=== PATIENT | female | born 1985 | race Caucasian/White ===

== ENCOUNTER 2017-08-27 19:25 | Emergency (ER) | payer MEDICARE, MEDICAID ==
[2017-08-27 19:51] LABS: BASO % 0.2 % (0-6); EOS % 0.7 % (0-6); HEMATOCRIT 45.9 % (35.0-47.0); HEMOGLOBIN 15.5 gm/dl (11.6-16.0); LYMPH % 15.5 % (16-45); MEAN CELL VOLUME 84.5 fl (81-97); MEAN CORPUSCULAR HEMOGLOBIN 28.5 pg (27-33); MEAN CORPUSCULAR HGB CONC 33.8 g/dl (32-36); MEAN PLATELET VOLUME 9.7 fl (7.4-10.4); MONO % 8.6 % (0-9); PLATELET COUNT 284 K/uL (130-400); RED BLOOD COUNT 5.43 M/uL (3.80-5.40); RED CELL DISTRIBUTION WIDTH 12.7 % (11.5-14.5); WHITE BLOOD COUNT W/O DIFF 8.8 K/uL (4.2-12.2)
[2017-08-27 20:03] LABS: BLOOD UREA NITROGEN 6 mg/dL (6-20); CREATININE 0.4 mg/dL (0.5-0.9); EST GLOMERULAR FILTRATION RATE > 60 mL/min
[2017-08-27 20:04] LABS: TOTAL PROTEIN 7.9 g/dL (6.6-8.7)
[2017-08-27 20:06] LABS: GLUCOSE,RANDOM 129 mg/dL (74-109)
[2017-08-27 20:09] LABS: ALB/GLOB RATIO 1.5 (1.1-1.8); ALBUMIN 4.7 g/dL (4.0-5.0); ALKALINE PHOSPHATASE 89 U/L (35-104); ALT/SGPT 123 U/L (<33); AST/SGOT 156 U/L (10.0-35.0)
[2017-08-27 20:12] LABS: URINE APPEARANCE CLEAR; URINE BILIRUBIN MODERATE (NEGATIVE); URINE BLOOD NEGATIVE (NEGATIVE); URINE COLOR ORANGE; URINE GLUCOSE (UA) NEGATIVE (NEGATIVE); URINE KETONE TRACE (NEGATIVE); URINE LEUKOCYTE ESTERASE NEGATIVE (NEGATIVE); URINE NITRITE NEGATIVE (NEGATIVE); URINE PROTEIN TRACE (NEGATIVE)
[2017-08-27 20:13] LABS: HCG,QUALITATIVE URINE NEGATIVE (NEGATIVE)
--- NOTE | 2017-08-27 21:05 | Emergency Department Record ---
History of Present Illness - General Chief Complaint: Abdominal Pain Stated Complaint: ABDOMINAL PAIN Time Seen by Provider: 08/27/17 19:42 Source: Patient Mode of Arrival: Ambulatory Limitations: No limitations - History of Present Illness Initial Comments: pt has ap since her son jumped on her abdomen yesterday. she has vomited 7 times and has upper abd pain MD Complaint: Abdominal pain Onset/Timin -: Days(s) Location: LUQ, RUQ Radiation: None Severity: Moderate Severity scale (1-10): 5 Quality: Aching Consistency: Constant Improves With: Nothing Worsens With: Nothing Associated Symptoms: Nausea, Vomiting - Related Data LMP (females 10-50): 1 month ago Patient : No Home Medications Medication Instructions Recorded Confirmed Last Taken No Home Med [NO HOME MEDS] 08/27/17 08/27/17 Unknown Allergies Allergy/AdvReac Type Severity Reaction Status Date / Time Penicillins Allergy Severe HIVES Unverified 12/27/15 15:49 Travel Screening - Travel/Exposure Within Last 30 Days Have you traveled within the last 30 days?: No Review of Systems Reviewed: No additional complaints except as noted below Constitutional: Reports: As per HPI. Denies: Chills, Fever, Malaise, Night sweats, Weakness, Weight change Eyes: Reports: As per HPI. Denies: Eye discharge, Eye pain, Photophobia, Vision change ENT: Reports: As per HPI. Denies: Congestion, Dental pain, Ear pain, Epistaxis , Hearing loss, Throat pain Respiratory: Reports: As per HPI. Denies: Cough, Dyspnea, Hemoptysis, Stridor, Wheezes Cardiovascular: Reports: As per HPI. Denies: Arrhythmia, Chest pain, Dyspnea on exertion, Edema, Murmurs, Orthopnea, Palpitations, Paroxysmal nocturnal dyspnea, Rheumatic Fever, Syncope Endocrine: Reports: As per HPI. Denies: Fatigue, Heat or cold intolerance, Polydipsia, Polyuria Gastrointestinal: Reports: As per HPI, Abdominal pain, Nausea, Vomiting. Denies : Constipation, Diarrhea, Hematemesis, Hematochezia, Melena Genitourinary: Reports: As per HPI. Denies: Abnormal menses, Discharge, Dyspareunia, Dysuria, Frequency, Hematuria, Incontinence, Retention, Urgency Musculoskeletal: Reports: As per HPI. Denies: Arthralgia, Back pain, Gout, Joint swelling, Myalgia, Neck pain Skin: Reports: As per HPI. Denies: Bruising, Change in color, Change in hair/ nails, Lesions, Pruritus, Rash Neurological: Reports: As per HPI. Denies: Abnormal gait, Confusion, Headache, Numbness, Paresthesias, Seizure, Tingling, Tremors, Vertigo, Weakness Psychiatric: Reports: As per HPI. Denies: Anxiety, Auditory hallucinations, Depression, Homicidal thoughts, Suicidal thoughts, Visual hallucinations Hematological/Lymphatic: Reports: As per HPI. Denies: Anemia, Blood Clots, Easy bleeding, Easy bruising, Swollen glands Past Medical History - SOCIAL HISTORY Smoking Status: Never smoker Alcohol Use: None Drug Use: None - RESPIRATORY Hx Respiratory Disorders: No - CARDIOVASCULAR Hx Cardio Disorders: No - NEURO Hx Neuro Disorders: No - GI Hx GI Disorders: No - Hx Genitourinary Disorders: No - ENDOCRINE Hx Endocrine Disorders: No - MUSCULOSKELETAL Hx Musculoskeletal Disorders: No - PSYCH Hx Psych Problems: No - HEMATOLOGY/ONCOLOGY Hx Hematology/Oncology Disorders: No Family Medical History Any Significant Family History?: Yes Hx Cancer: Mother Physical Exam - General General Appearance: Alert, Oriented x3, Cooperative, Mild distress - Head Head exam: Normal inspection - Eye Eye exam: Normal appearance, PERRL, EOMI Pupils: Normal accommodation - ENT ENT exam: Normal exam, Mucous membranes moist, Normal external ear exam, Normal orophraynx Ear exam: Normal external inspection. negative: External canal tenderness Nasal Exam: Normal inspection. negative: Discharge, Sinus tenderness Mouth exam: Normal external inspection, Tongue normal Teeth exam: Normal inspection. negative: Dental caries Throat exam: Normal inspection. negative: Tonsillar erythema, Tonsillar exudate - Neck Neck exam: Normal inspection, Full ROM. negative: Tenderness - Respiratory Respiratory exam: Normal lung sounds bilaterally. negative: Respiratory distress - Cardiovascular Cardiovascular Exam: Regular rate, Normal rhythm, Normal heart sounds - GI/Abdominal GI/Abdominal exam: Soft, Normal bowel sounds, Tenderness - Rectal Rectal exam: Deferred - exam: Deferred - Extremities Extremities exam: Normal inspection, Full ROM, Normal capillary refill. negative: Tenderness - Back Back exam: Reports: Normal inspection, Full ROM. Denies: Muscle spasm, Rash noted, Tenderness - Neurological Neurological exam: Alert, CN II-XII intact, Normal gait, Oriented X3 - Psychiatric Psychiatric exam: Normal affect, Normal mood - Skin Skin exam: Dry, Intact, Normal color, Warm Course Vital Signs 08/27/17 19:27 Temperature 97.9 F Pulse Rate 89 Respiratory 20 Rate Blood Pressure 130/103 Pulse Ox 97 - Reevaluation(s) Reevaluation #1: 08/27/17 23:38 cholelithiasis is an incidental finding Medical Decision Making - Lab Data Result diagrams: 08/27/17 19:33 08/27/17 19:33 Lab Results 08/27/17 08/27/17 08/27/17 Range/Units 19:33 19:33 19:33 WBC 8.8 (4.2-12.2) K/uL Corrected WBC RBC 5.43 H (3.80-5.40) M/uL Hgb 15.5 (11.6-16.0) gm/dl Hct 45.9 (35.0-47.0) % MCV 84.5 (81-97) fl MCH 28.5 (27-33) pg MCHC 33.8 (32-36) g/dl RDW 12.7 (11.5-14.5) % Plt Count 284 (130-400) K/uL MPV 9.7 (7.4-10.4) fl Gran % 75.0 (47-80) % Lymphocytes % 15.5 L (16-45) % Monocytes % 8.6 (0-9) % Eosinophils % 0.7 (0-6) % Basophils % 0.2 (0-6) % Sodium 146 H (136-145) mmol/L Potassium 3.6 (3.4-4.5) mmol/L Chloride 102 (98-107) mmol/L Carbon Dioxide 23.0 (22-29) mmol/L Anion Gap 21.0 H (7-16) BUN 6 (6-20) mg/dL Creatinine 0.4 L (0.5-0.9) mg/dL Estimated GFR > 60 mL/min Random Glucose 129 H (74-109) mg/dL Calcium 9.8 (8.6-10.0) mg/dL Total Bilirubin 3.50 H (0.2-1.0) mg/dL AST 156 H (10.0-35.0) U/L ALT 123 H (<33) U/L Alkaline Phosphatase 89 (35-104) U/L Total Protein 7.9 (6.6-8.7) g/dL Albumin 4.7 (4.0-5.0) g/dL Globulin 3.2 (1.4-4.8) gm/dL Albumin/Globulin Ratio 1.5 (1.1-1.8) Urine Color Hutchins H Urine Appearance Clear Urine pH 6.0 (5.0-8.0) Ur Specific Butler >= 1.030 (1.002-1.030) Urine Protein Trace H (NEGATIVE) Urine Glucose (UA) Negative (NEGATIVE) Urine Clinitest Urine Ketones Trace H (NEGATIVE) Urine Blood Negative (NEGATIVE) Urine Nitrite Negative (NEGATIVE) Urine Bilirubin Moderate H (NEGATIVE) Urine Ictotest Prot Sulfosalicylic Acd Urine Urobilinogen 2.0 H (0.20 - 1.00) E.U./dL Ur Leukocyte Esterase Negative (NEGATIVE) Urine HCG, Qual Negative (NEGATIVE) 08/27/17 08/27/17 08/27/17 Range/Units 20:09 20:09 20:09 WBC Cancelled (4.2-12.2) K/uL Corrected WBC Cancelled RBC Cancelled (3.80-5.40) M/uL Hgb Cancelled (11.6-16.0) gm/dl Hct Cancelled (35.0-47.0) % MCV Cancelled (81-97) fl MCH Cancelled (27-33) pg MCHC Cancelled (32-36) g/dl RDW Cancelled (11.5-14.5) % Plt Count Cancelled (130-400) K/uL MPV Cancelled (7.4-10.4) fl Gran % Cancelled (47-80) % Lymphocytes % Cancelled (16-45) % Monocytes % Cancelled (0-9) % Eosinophils % Cancelled (0-6) % Basophils % Cancelled (0-6) % Sodium Cancelled (136-145) mmol/L Potassium Cancelled (3.4-4.5) mmol/L Chloride Cancelled (98-107) mmol/L Carbon Dioxide Cancelled (22-29) mmol/L Anion Gap Cancelled (7-16) BUN Cancelled (6-20) mg/dL Creatinine Cancelled (0.5-0.9) mg/dL Estimated GFR Cancelled mL/min Random Glucose Cancelled (74-109) mg/dL Calcium Cancelled (8.6-10.0) mg/dL Total Bilirubin Cancelled (0.2-1.0) mg/dL AST Cancelled (10.0-35.0) U/L ALT Cancelled (<33) U/L Alkaline Phosphatase Cancelled (35-104) U/L Total Protein Cancelled (6.6-8.7) g/dL Albumin Cancelled (4.0-5.0) g/dL Globulin Cancelled (1.4-4.8) gm/dL Albumin/Globulin Ratio Cancelled (1.1-1.8) Urine Color Cancelled Urine Appearance Cancelled Urine pH Cancelled (5.0-8.0) Ur Specific Butler Cancelled (1.002-1.030) Urine Protein Cancelled (NEGATIVE) Urine Glucose (UA) Cancelled (NEGATIVE) Urine Clinitest Cancelled Urine Ketones Cancelled (NEGATIVE) Urine Blood Cancelled (NEGATIVE) Urine Nitrite Cancelled (NEGATIVE) Urine Bilirubin Cancelled (NEGATIVE) Urine Ictotest Cancelled Prot Sulfosalicylic Acd Cancelled Urine Urobilinogen Cancelled (0.20 - 1.00) E.U./dL Ur Leukocyte Esterase Cancelled (NEGATIVE) Urine HCG, Qual Cancelled (NEGATIVE) Disposition Disposition: Discharge Clinical Impression: Abdominal pain Qualifiers: Abdominal location: upper abdomen, unspecified Qualified Code(s): R10.10 - Upper abdominal pain, unspecified Cholelithiasis Qualifiers: Cholelithiasis location: gallbladder Cholecystitis presence: without cholecystitis Biliary obstruction: without biliary obstruction Qualified Code(s) : K80.20 - Calculus of gallbladder without cholecystitis without obstruction Disposition: Home, Self-Care Condition: (1) Good Instructions: Abdominal Pain (ED) Additional Instructions: follow up with family doctor. return sooner if worse. bland diet. Forms: Patient Portal Access Quality - Quality Measures Quality Measures: N/A - Blood Pressure Screening Does Patient Have Any of the Following: No Blood Pressure Classification: Hypertensive Reading Systolic Measurement: 130 Diastolic Measurement: 103 Screening for High Blood Pressure: < Pre-Hypertensive BP, F/U Documented > [ G8950] Pre-Hypertensive Follow-up Interventions: Follow-up with rescreen every year.
--- NOTE | 2017-08-30 09:24 | CT SCAN REPORT ---
EXAM: CT OF THE ABDOMEN AND PELVIS WITH CONTRAST HISTORY: ABDOMINAL PAIN. TECHNIQUE: Sequential axial images were obtained from the diaphragms through the ischiorectal fossa after intravenous administration of 100 ml of Omnipaque 300 contrast material. FINDINGS: There is mild cardiomegaly. No pericardial effusion. The liver appears normal. There is cholelithiasis. No ductal dilatation. The pancreas and spleen appear normal. The adrenal glands and kidneys appear normal. The small bowel appears normal. The appendix is visualized and appears normal. The colon appears normal. The urinary bladder appears normal. There is follicular change with a likely recently ruptured cyst in the left ovary. The osseous structures are normal. IMPRESSION: 1. CHOLELITHIASIS WITHOUT DUCTAL DILATATION. 2. THE APPENDIX IS VISUALIZED AND APPEARS NORMAL. 3. FINDINGS SUGGESTIVE OF RECENTLY RUPTURED FOLLICLE OR CYST IN THE LEFT OVARY. JOB NUMBER: [id number] [facility]
== END 2017-08-27 23:51 | disposition home or self-care (01) ==
LOC: ER 19:25
DX: K80.20 Calculus of gallbladder without cholecystitis without obstruction (principal); R10.12 Left upper quadrant pain; R10.11 Right upper quadrant pain; R11.2 Nausea with vomiting, unspecified
CPT/HCPCS: 99283; 99284; 85025; 80053; 81003; 81025; 74177; Q9967

== ENCOUNTER 2018-03-23 10:02 | Emergency (ER) | payer MEDICARE ==
--- NOTE | 2018-03-23 10:29 | Emergency Department Record ---
History of Present Illness - General Chief Complaint: Laceration(s) Stated Complaint: LAC L INDEX FINGER Time Seen by Provider: 03/23/18 10:09 Source: Patient Mode of Arrival: Ambulatory Limitations: No limitations - History of Present Illness Initial Commments: The patient cut her L hand at the 2nd MCP joint with a very clean knife a half hour ago. She denies any numbness or tingling and her Td is UTD. Onset/Timin -: Minutes(s) Place: Home Context: Accidental Associated Symptoms: None Treatments Prior to Arrival: Bandage - [place] Coma Scale Eye Response: (4) Open spontaneously Motor Response: (6) Obeys commands Verbal Response: (5) Oriented [place] Total: 15 - Related Data Patient Tetanus UTD (within 5 yrs): Yes Allergies Allergy/AdvReac Type Severity Reaction Status Date / Time Penicillins Allergy Severe HIVES Verified 03/23/18 10:09 Travel Screening - Travel/Exposure Within Last 30 Days Have you traveled within the last 30 days?: No - Travel/Exposure Within Last Year Have you traveled outside the [place] in the last year?: No - Additonal Travel Details Have you been exposed to anyone with a communicable illness?: No - Travel Symptoms Symptom Screening: None Review of Systems Constitutional: Denies: Chills, Fever Past Medical History - SOCIAL HISTORY Smoking Status: Never smoker Alcohol Use: None Drug Use: None - RESPIRATORY Hx Respiratory Disorders: No - CARDIOVASCULAR Hx Cardio Disorders: No - NEURO Hx Neuro Disorders: No - GI Hx GI Disorders: No - Hx Genitourinary Disorders: No - ENDOCRINE Hx Endocrine Disorders: No - MUSCULOSKELETAL Hx Musculoskeletal Disorders: No - PSYCH Hx Psych Problems: No - HEMATOLOGY/ONCOLOGY Hx Hematology/Oncology Disorders: No Family Medical History Any Significant Family History?: Yes Hx Cancer: Mother Physical Exam - General General Appearance: Alert, Cooperative - Extremities Extremities exam: negative: Normal inspection (There is a 1.5 cm lac just distal to the L 2nd MCP joint over the radial side. The L 2nd finger is NVI distally with normal tendon and nerve function. ) Image of Hand: 1 - 1.5 cm lac. Course Vital Signs 03/23/18 10:03 Temperature 98.3 F Pulse Rate 87 Respiratory 20 Rate Blood Pressure 125/102 Pulse Ox 96 - Reevaluation(s) Reevaluation #1: Procedure note: the L 2nd finger was anesth. with 1 cc Lido 1%. The wound was explored and was superficial and not down to the tendon or nerve. The wound was cleansed with betadine and lavaged with sterile saline. It was then closed with 3 4.0 nylon sutures. There were no complications. 03/23/18 10:33 Disposition Disposition: Discharge Clinical Impression: Laceration of hand Qualifiers: Encounter type: initial encounter Foreign body presence: without foreign body Laterality: left Qualified Code(s): S61.412A - Laceration without foreign body of left hand, initial encounter Disposition: Home, Self-Care Condition: (2) Stable Instructions: Laceration (ED) Additional Instructions: Keep dry for 2 days then no soaking or swimming. Return for any signs of infection. Return to the ER in 10 days for suture removal. Please use Tylenol for pain. Forms: Patient Portal Access Time of Disposition: 10:29 Quality - Quality Measures Quality Measures: N/A - Blood Pressure Screening View Details: Yes Does Patient Have Any of the Following: No Blood Pressure Classification: Hypertensive Reading Systolic Measurement: 125 Diastolic Measurement: 102 Screening for High Blood Pressure: < First Hypertensive BP, F/U Documented > [ G8950] First Hypertensive Follow-up Interventions: Referral to alternative/primary care provider.
== END 2018-03-23 10:37 | disposition home or self-care (01) ==
LOC: ER 10:02
DX: S61.211A Laceration without foreign body of left index finger without damage to nail, initial encounter (principal); W26.0XXA Contact with knife, initial encounter; Y92.009 Unspecified place in unspecified non-institutional (private) residence as the place of occurrence of the external cause
CPT/HCPCS: 12001; 99283

== ENCOUNTER 2018-04-02 08:47 | Emergency (ER) | payer MEDICARE ==
--- NOTE | 2018-04-02 08:59 | Emergency Department Record ---
History of Present Illness - General Chief Complaint: Suture removal Stated Complaint: SUTURE REMOVAL Time Seen by Provider: 04/02/18 08:56 Source: Patient Mode of arrival: Ambulatory Limitations: No limitations - History of Present Illness MD Complaint: Suture/staple removal Onset/Timin -: Week(s) Initial Visit For: Laceration Returns Today for: Staple/stitch removal Symptoms Since Prior Visit: No new symptoms Associated Symptoms: None - Related Data Allergies Allergy/AdvReac Type Severity Reaction Status Date / Time Penicillins Allergy Severe HIVES Verified 04/02/18 08:58 Travel Screening - Travel/Exposure Within Last 30 Days Have you traveled within the last 30 days?: No Review of Systems Reviewed: No additional complaints except as noted below Constitutional: Reports: As per HPI. Denies: Chills, Fever, Malaise, Night sweats, Weakness, Weight change Eyes: Reports: As per HPI. Denies: Eye discharge, Eye pain, Photophobia, Vision change ENT: Reports: As per HPI. Denies: Congestion, Dental pain, Ear pain, Epistaxis , Hearing loss, Throat pain Respiratory: Reports: As per HPI. Denies: Cough, Dyspnea, Hemoptysis, Stridor, Wheezes Cardiovascular: Reports: As per HPI. Denies: Arrhythmia, Chest pain, Dyspnea on exertion, Edema, Murmurs, Orthopnea, Palpitations, Paroxysmal nocturnal dyspnea, Rheumatic Fever, Syncope Endocrine: Reports: As per HPI. Denies: Fatigue, Heat or cold intolerance, Polydipsia, Polyuria Gastrointestinal: Reports: As per HPI. Denies: Abdominal pain, Constipation, Diarrhea, Hematemesis, Hematochezia, Melena, Nausea, Vomiting Genitourinary: Reports: As per HPI. Denies: Abnormal menses, Discharge, Dyspareunia, Dysuria, Frequency, Hematuria, Incontinence, Retention, Urgency Musculoskeletal: Reports: As per HPI. Denies: Arthralgia, Back pain, Gout, Joint swelling, Myalgia, Neck pain Skin: Reports: As per HPI. Denies: Bruising, Change in color, Change in hair/ nails, Lesions, Pruritus, Rash Neurological: Reports: As per HPI. Denies: Abnormal gait, Confusion, Headache, Numbness, Paresthesias, Seizure, Tingling, Tremors, Vertigo, Weakness Psychiatric: Reports: As per HPI. Denies: Anxiety, Auditory hallucinations, Depression, Homicidal thoughts, Suicidal thoughts, Visual hallucinations Hematological/Lymphatic: Reports: As per HPI. Denies: Anemia, Blood Clots, Easy bleeding, Easy bruising, Swollen glands Past Medical History - SOCIAL HISTORY Smoking Status: Never smoker Alcohol Use: None Drug Use: None - RESPIRATORY Hx Respiratory Disorders: No - CARDIOVASCULAR Hx Cardio Disorders: No - NEURO Hx Neuro Disorders: No - GI Hx GI Disorders: No - Hx Genitourinary Disorders: No - ENDOCRINE Hx Endocrine Disorders: No - MUSCULOSKELETAL Hx Musculoskeletal Disorders: No - PSYCH Hx Psych Problems: No - HEMATOLOGY/ONCOLOGY Hx Hematology/Oncology Disorders: No Family Medical History Any Significant Family History?: Yes Hx Cancer: Mother Physical Exam - General General Appearance: Alert, Oriented x3, Cooperative, No acute distress - Head Head exam: Normal inspection - Eye Eye exam: Normal appearance, PERRL, EOMI Pupils: Normal accommodation - ENT ENT exam: Normal exam, Mucous membranes moist, Normal external ear exam, Normal orophraynx Ear exam: Normal external inspection. negative: External canal tenderness Nasal Exam: Normal inspection. negative: Discharge, Sinus tenderness Mouth exam: Normal external inspection, Tongue normal Teeth exam: Normal inspection. negative: Dental caries Throat exam: Normal inspection. negative: Tonsillar erythema, Tonsillar exudate - Neck Neck exam: Normal inspection, Full ROM. negative: Tenderness - Respiratory Respiratory exam: negative: Respiratory distress - GI/Abdominal GI/Abdominal exam: Soft, Normal bowel sounds. negative: Tenderness - Rectal Rectal exam: Deferred - exam: Deferred - Extremities Extremities exam: Normal inspection, Full ROM, Normal capillary refill. negative: Tenderness - Back Back exam: Reports: Normal inspection, Full ROM. Denies: Muscle spasm, Rash noted, Tenderness - Neurological Neurological exam: Alert, CN II-XII intact, Normal gait, Oriented X3 - Psychiatric Psychiatric exam: Normal affect, Normal mood - Skin Skin exam: Dry, Intact, Normal color, Warm Course Vital Signs 04/02/18 08:56 Temperature 98.0 F Pulse Rate 94 H Respiratory 18 Rate Blood Pressure 105/76 Pulse Ox 96 Disposition Disposition: Discharge Clinical Impression: Visit for suture removal Disposition: Home, Self-Care Condition: (1) Good Instructions: Stitches Removal (ED) Additional Instructions: follow up with family doctor. return sooner if worse Forms: Patient Portal Access Quality - Quality Measures Quality Measures: N/A - Blood Pressure Screening Does Patient Have Any of the Following: No Blood Pressure Classification: Normal BP Reading Systolic Measurement: 105 Diastolic Measurement: 76 Screening for High Blood Pressure: < Normal BP, F/U Not Required > [G8783]
== END 2018-04-02 09:14 | disposition home or self-care (01) ==
LOC: ER 08:47
DX: Z48.02 Encounter for removal of sutures (principal)

== ENCOUNTER 2018-07-07 15:40 | Emergency (ER) | payer MEDICARE ==
[2018-07-07 16:29] LABS: HCG,QUALITATIVE URINE POSITIVE (NEGATIVE); URINE APPEARANCE CLOUDY; URINE BILIRUBIN NEGATIVE (NEGATIVE); URINE BLOOD MODERATE (NEGATIVE); URINE COLOR YELLOW; URINE GLUCOSE (UA) NEGATIVE (NEGATIVE); URINE KETONE NEGATIVE (NEGATIVE); URINE LEUKOCYTE ESTERASE NEGATIVE (NEGATIVE); URINE NITRITE NEGATIVE (NEGATIVE)
[2018-07-07 16:40] LABS: URINE BACTERIA FEW; URINE WBC 0 - 2 (0-2/hpf)
--- NOTE | 2018-07-07 16:42 | Emergency Department Record ---
History of Present Illness - General Chief complaint: complication Stated complaint: AND BLEEDING Time Seen by Provider: 07/07/18 16:33 Source: Patient, RN notes reviewed Mode of Arrival: Ambulatory Travel/Exposure to [place] Within 21 Days of Symptoms: No - History of Present Illness Initial comments: vaginal bleeding and pregnacy 7 weeks and bleeding started 3 hours ago [address] Dr Dina Harrison at [facility] and and 7year olds Onset/Timin -: Minutes(s) Radiation: None Severity: Mild Consistency: Now resolved Improves with: None Worsens with: None Associated symptoms: Vaginal bleeding Vaginal bleeding: Light Pre- care: Followed by OB - Related Data : 2 Para: 1 Allergies Allergy/AdvReac Type Severity Reaction Status Date / Time Penicillins Allergy Severe HIVES Verified 07/07/18 15:50 Review of Systems Reviewed: No additional complaints except as noted below Constitutional: Reports: As per HPI. Denies: Chills, Fever, Malaise, Night sweats, Weakness, Weight change Eyes: Reports: As per HPI. Denies: Eye discharge, Eye pain, Photophobia, Vision change ENT: Reports: As per HPI. Denies: Congestion, Dental pain, Ear pain, Epistaxis, Hearing loss, Throat pain Respiratory: Reports: As per HPI. Denies: Cough, Dyspnea, Hemoptysis, Stridor, Wheezes Cardiovascular: Reports: As per HPI. Denies: Arrhythmia, Chest pain, Dyspnea on exertion, Edema, Murmurs, Orthopnea, Palpitations, Paroxysmal nocturnal dyspnea, Rheumatic Fever, Syncope Endocrine: Reports: As per HPI. Denies: Fatigue, Heat or cold intolerance, Polydipsia, Polyuria Gastrointestinal: Reports: As per HPI. Denies: Abdominal pain, Constipation, Diarrhea, Hematemesis, Hematochezia, Melena, Nausea, Vomiting Genitourinary: Reports: As per HPI, Other (vaginal bleeding and 7 weeks preg). Denies: Abnormal menses, Discharge, Dyspareunia, Dysuria, Frequency, Hematuria, Incontinence, Retention, Urgency Musculoskeletal: Reports: As per HPI. Denies: Arthralgia, Back pain, Gout, Joint swelling, Myalgia, Neck pain Skin: Reports: As per HPI. Denies: Bruising, Change in color, Change in hair/nails, Lesions, Pruritus, Rash Neurological: Reports: As per HPI. Denies: Abnormal gait, Confusion, Headache, Numbness, Paresthesias, Seizure, Tingling, Tremors, Vertigo, Weakness Psychiatric: Reports: As per HPI. Denies: Anxiety, Auditory hallucinations, Dep ression, Homicidal thoughts, Suicidal thoughts, Visual hallucinations Hematological/Lymphatic: Reports: As per HPI. Denies: Anemia, Blood Clots, Easy bleeding, Easy bruising, Swollen glands Past Medical History - SOCIAL HISTORY Smoking Status: Never smoker Alcohol Use: None Drug Use: None - [employer] History : 2 Para: 1 - RESPIRATORY Hx Respiratory Disorders: No - CARDIOVASCULAR Hx Cardio Disorders: No - NEURO Hx Neuro Disorders: No - GI Hx GI Disorders: No - Hx Genitourinary Disorders: No - ENDOCRINE Hx Endocrine Disorders: No - MUSCULOSKELETAL Hx Musculoskeletal Disorders: No - PSYCH Hx Psych Problems: No - HEMATOLOGY/ONCOLOGY Hx Hematology/Oncology Disorders: No Family Medical History Any Significant Family History?: Yes Hx Cancer: Mother Physical Exam - General General Appearance: Alert, Oriented x3, Cooperative, No acute distress - Head Head exam: Normal inspection - Eye Eye exam: Normal appearance, PERRL Pupils: Normal accommodation - ENT ENT exam: Normal exam, Mucous membranes moist, Normal external ear exam, Normal orophraynx, TM's normal bilaterally Ear exam: Normal external inspection. negative: External canal tenderness Nasal Exam: Normal inspection. negative: Discharge, Sinus tenderness Mouth exam: Normal external inspection, Tongue normal Teeth exam: Normal inspection. negative: Dental caries Throat exam: Normal inspection. negative: Tonsillar erythema, Tonsillar exudate - Neck Neck exam: Normal inspection, Full ROM. negative: Tenderness - Respiratory Respiratory exam: Normal lung sounds bilaterally. negative: Respiratory distress - Cardiovascular Cardiovascular Exam: Regular rate, Normal rhythm, Normal heart sounds - GI/Abdominal GI/Abdominal exam: Soft, Normal bowel sounds. negative: Tenderness - Rectal Rectal exam: Deferred - exam: Vaginal bleeding (no tissue small amount of bleeding and no tissue and no abdominal pain), Other (no abdominal pain). negative: Abnormal external exam, Adnexal mass (L), Adnexal mass (R), Adnexal tenderness (L), Adnexal tenderness (R), cervical motion tenderness - Extremities Extremities exam: Normal inspection, Full ROM, Normal capillary refill. negative: Tenderness - Back Back exam: Reports: Normal inspection, Full ROM. Denies: Muscle spasm, Rash noted, Tenderness - Neurological Neurological exam: Alert, Normal gait, Oriented X3, Reflexes normal - Psychiatric Psychiatric exam: Normal affect, Normal mood - Skin Skin exam: Dry, Intact, Normal color, Warm Course Vital Signs 07/07/18 15:52 Temperature 98.7 F Pulse Rate 127 H Respiratory 20 Rate Blood Pressure 148/98 Pulse Ox 98 - Reevaluation(s) Reevaluation #1: discussed case with dr Toth and he said to call Dr Harrison tomorrow for follow up and to watch for signs of an ectopic and to go to [facility] if she has any signs of ectopic. 07/07/18 18:11 Reevaluation #2: US not available and no signs of ectopic and size of uterus is appropriate for 7 weeks preg. 07/07/18 18:22 Medical Decision Making - Lab Data Result diagrams: 07/07/18 16:00 07/07/18 16:00 Lab Results 07/07/18 Range/Units 16:20 Urine Color Yellow Urine Appearance Cloudy Urine pH 5.5 (5.0-8.0) Ur Specific [place] >= 1.030 (1.002-1.030) Urine Protein 30 mg/dl H (NEGATIVE) Urine Glucose (UA) Negative (NEGATIVE) Urine Ketones Negative (NEGATIVE) Urine Blood Moderate (NEGATIVE) Urine Nitrite Negative (NEGATIVE) Urine Bilirubin Negative (NEGATIVE) Urine Urobilinogen 1.0 (0.20 - 1.00) E.U./dL Ur Leukocyte Esterase Negative (NEGATIVE) Urine HCG, Qual Positive H (NEGATIVE) Disposition Clinical Impression: Vaginal bleeding, Threatened Disposition: Home, Self-Care Condition: (1) Good Instructions: Threatened Miscarriage (ED) Additional Instructions: if develops abd pain or lightheaded or heavy vaginal bleeding go to [facility] ED for evaluation. Forms: Patient Portal Access Time of Disposition: 18:17 Quality - Quality Measures Quality Measures: (14-50yr) - : US Determination Quality Measure: Measure #254: US Determination of Location ICD10 Codes Entered: Yes US Determination of Location: Trans-Abdominal or Trans-Vaginal US NOT Performed w/Reasons [G8807] Reason for No US: Other (no signs of ectopic and US not available and OB Dr castro will work her in tomorrow for US) - : Rhogam Quality Measure: Measure #255: Rhogam for Rh-Negative Women ICD10 Codes Entered: No Rhogam for Rh-Negative Women at Risk: Rh-immunoglobulin NOT Ordered [G8811] Reason for not prescribing Rhogam: Other - Blood Pressure Screening Does Patient Have Any of the Following: No Blood Pressure Classification: Hypertensive Reading Systolic Measurement: 148 Diastolic Measurement: 98 Screening for High Blood Pressure: < First Hypertensive BP, F/U Documented > [G8950] First Hypertensive Follow-up Interventions: Referral to alternative/primary care provider.
[2018-07-07 16:46] LABS: ABSOLUTE NEUTROPHIL COUNT 5.29; BASO % 0.2 % (0-6); EOS % 3.8 % (0-6); GRAN % 63.6 % (47-80); HEMATOCRIT 45.6 % (35.0-47.0); HEMOGLOBIN 14.7 gm/dl (11.6-16.0); LYMPH % 24.4 % (16-45); MEAN CELL VOLUME 84.9 fl (81-97); MEAN CORPUSCULAR HEMOGLOBIN 27.4 pg (27-33); MEAN CORPUSCULAR HGB CONC 32.2 g/dl (32-36); MEAN PLATELET VOLUME 9.1 fl (7.4-10.4); PLATELET COUNT 336 K/uL (130-400); RED BLOOD COUNT 5.37 M/uL (3.80-5.40); RED CELL DISTRIBUTION WIDTH 13.3 % (11.5-14.5); WHITE BLOOD COUNT W/O DIFF 8.3 K/uL (4.2-12.2)
[2018-07-07 16:55] LABS: TOTAL B-hCG 2433 mIU/mL
[2018-07-07 17:00] LABS: BLOOD UREA NITROGEN 7 mg/dL (6-20); CREATININE 0.6 mg/dL (0.5-0.9); EST GLOMERULAR FILTRATION RATE > 60 mL/min
[2018-07-07 17:02] LABS: GLUCOSE,RANDOM 110 mg/dL (74-109)
[2018-07-08 23:22] LABS: GC SPECIMEN TYPE Cervix
== END 2018-07-07 18:34 | disposition home or self-care (01) ==
LOC: ER 15:40
DX: O20.0 Threatened abortion (principal); Z3A.01 Less than 8 weeks gestation of pregnancy
CPT/HCPCS: 99284 ×2; 85025; 84702; 80048; 81001; 81025; 86901; Q0111; 87210

== ENCOUNTER 2018-07-08 21:29 | Emergency (ER) | payer MEDICARE ==
--- NOTE | 2018-07-08 21:54 | Emergency Department Record ---
History of Present Illness - General Chief complaint: Bite Insect/other Stated complaint: found tick on head Time Seen by Provider: 07/08/18 21:32 Source: Patient Mode of Arrival: Ambulatory Limitations: No limitations - History of Present Illness Initial comments: The patient found a tick on the back of her head a half hour ago so they came immediately to the ER. The patient was just walking in the [place] prior with her dog. She is 5 weeks and denies any new problems or issues. MD complaint: Insect bite/sting, Other Onset/Timin -: Minutes(s) Associated symptoms: Denies other symptoms Treatments Prior to Arrival: Other Treatment Prior to Arrival Comment:: removed tick [employer] - Related Data Allergies Allergy/AdvReac Type Severity Reaction Status Date / Time Penicillins Allergy Severe HIVES Verified 07/07/18 15:50 Travel Screening - Travel/Exposure Within Last 30 Days Have you traveled within the last 30 days?: No - Travel Symptoms Symptom Screening: None Review of Systems Constitutional: Denies: Chills, Fever Eyes: Denies: Eye discharge ENT: Denies: Congestion Past Medical History - SOCIAL HISTORY Smoking Status: Never smoker - RESPIRATORY Hx Respiratory Disorders: No - CARDIOVASCULAR Hx Cardio Disorders: No - NEURO Hx Neuro Disorders: No - GI Hx GI Disorders: No - Hx Genitourinary Disorders: No - ENDOCRINE Hx Endocrine Disorders: No - MUSCULOSKELETAL Hx Musculoskeletal Disorders: No - PSYCH Hx Psych Problems: No - HEMATOLOGY/ONCOLOGY Hx Hematology/Oncology Disorders: No Family Medical History Any Significant Family History?: Yes Hx Cancer: Mother Physical Exam - General General Appearance: Alert, Oriented x3, Cooperative, No acute distress - Head Head exam: Atraumatic, Normocephalic, Normal inspection - Eye Eye exam: Normal appearance, PERRL - Neck Neck exam: Normal inspection, Full ROM. negative: Tenderness - Respiratory Respiratory exam: Normal lung sounds bilaterally. negative: Respiratory distress - Cardiovascular Cardiovascular Exam: Regular rate, Normal rhythm, Normal heart sounds - Extremities Extremities exam: Normal inspection, Full ROM, Normal capillary refill. negative: Tenderness - Neurological Neurological exam: Alert. negative: Motor sensory deficit Course Vital Signs 07/08/18 21:35 Temperature 98 F Pulse Rate [ 99 H Pulse Ox Probe] Respiratory 20 Rate Blood Pressure 130/84 [Left Arm] Pulse Ox 99 - Reevaluation(s) Reevaluation #1: The patient did have the tick with her and it appears to be a dog tick that does not carry [place] disease. Either way the patient is not a candidate for prophylaxis due to being 5 weeks so she cannot take Doxycycline and allergic to PCN so she cannot take Amoxicillin. She is to see her PCP and be followed for Lyme dz and also have her blood tested for seroconversion. 07/08/18 21:56 Disposition Disposition: Discharge Clinical Impression: Tick bite Qualifiers: Encounter type: initial encounter Qualified Code(s): W57.XXXA - Bitten or stung by nonvenomous insect and other nonvenomous arthropods, initial encounter Disposition: Home, Self-Care Condition: (2) Stable Instructions: Insect Bite or Sting (ED) Additional Instructions: Please see your family doctor to be followed for the onset of Lyme Dz and to be tested for seroconversion. Return to the ER for any problems. Forms: Patient Portal Access Time of Disposition: 21:53 Quality - Quality Measures Quality Measures: N/A - Blood Pressure Screening View Details: Yes Does Patient Have Any of the Following: No Blood Pressure Classification: Pre-Hypertensive BP Reading Systolic Measurement: 130 Diastolic Measurement: 84 Screening for High Blood Pressure: < Pre-Hypertensive BP, F/U Documented > [G8950] Pre-Hypertensive Follow-up Interventions: Referral to alternative/primary care provider.
== END 2018-07-08 21:58 | disposition home or self-care (01) ==
LOC: ER 21:29
DX: T63.481A Toxic effect of venom of other arthropod, accidental (unintentional), initial encounter (principal); W57.XXXA Bitten or stung by nonvenomous insect and other nonvenomous arthropods, initial encounter; Y92.828 Other wilderness area as the place of occurrence of the external cause; O20.9 Hemorrhage in early pregnancy, unspecified; Z3A.00 Weeks of gestation of pregnancy not specified
CPT/HCPCS: 76801; 76817; 99282

== ENCOUNTER 2018-09-21 13:08 | Emergency (ER) | payer MEDICARE, MEDICAID ==
[2018-09-21 14:25] LABS: URINE APPEARANCE CLEAR; URINE BILIRUBIN NEGATIVE (NEGATIVE); URINE BLOOD NEGATIVE (NEGATIVE); URINE COLOR YELLOW; URINE GLUCOSE (UA) NEGATIVE (NEGATIVE); URINE KETONE NEGATIVE (NEGATIVE); URINE LEUKOCYTE ESTERASE NEGATIVE (NEGATIVE); URINE NITRITE NEGATIVE (NEGATIVE); URINE PROTEIN NEGATIVE (NEGATIVE); URINE UROBILINOGEN 0.2 E.U./dL (0.20 - 1.00)
[2018-09-21 14:27] LABS: HCG,QUALITATIVE URINE NEGATIVE (NEGATIVE)
--- NOTE | 2018-09-21 14:59 | Emergency Department Record ---
History of Present Illness - General Chief complaint: Swelling of legs Stated complaint: SWELLING IN LEGS Time Seen by Provider: 09/21/18 14:03 Source: Patient Mode of Arrival: Ambulatory - History of Present Illness Initial comments: swelling in both legs and overweight, no pain and no signs of erythema . No chest pain or dysnpea and no medications Onset/Timin -: Week(s) - Related Data Previous Rx's Medication Instructions Recorded Triamterene/Hydrochlorothiazid 1 each PO DAILY #14 capsule 09/21/18 [Dyazide 37.5-25 Capsule] Allergies Allergy/AdvReac Type Severity Reaction Status Date / Time Penicillins Allergy Severe HIVES Verified 09/21/18 14:07 Travel Screening - Travel/Exposure Within Last 30 Days Have you traveled within the last 30 days?: No - Travel/Exposure Within Last Year Have you traveled outside the [place] in the last year?: No - Additonal Travel Details Have you been exposed to anyone with a communicable illness?: No - Travel Symptoms Symptom Screening: None Review of Systems Reviewed: No additional complaints except as noted below Constitutional: Reports: As per HPI. Denies: Chills, Fever, Malaise, Night sweats, Weakness, Weight change Eyes: Reports: As per HPI. Denies: Eye discharge, Eye pain, Photophobia, Vision change ENT: Reports: As per HPI. Denies: Congestion, Dental pain, Ear pain, Epistaxis, Hearing loss, Throat pain Respiratory: Reports: As per HPI. Denies: Cough, Dyspnea, Hemoptysis, Stridor, Wheezes Cardiovascular: Reports: As per HPI, Edema. Denies: Arrhythmia, Chest pain, Dyspnea on exertion, Murmurs, Orthopnea, Palpitations, Paroxysmal nocturnal dyspnea, Rheumatic Fever, Syncope Endocrine: Reports: As per HPI. Denies: Fatigue, Heat or cold intolerance, Polydipsia, Polyuria Gastrointestinal: Reports: As per HPI. Denies: Abdominal pain, Constipation, Diarrhea, Hematemesis, Hematochezia, Melena, Nausea, Vomiting Genitourinary: Reports: As per HPI. Denies: Abnormal menses, Discharge, Dyspareunia, Dysuria, Frequency, Hematuria, Incontinence, Retention, Urgency Musculoskeletal: Reports: As per HPI. Denies: Arthralgia, Back pain, Gout, Joint swelling, Myalgia, Neck pain Skin: Reports: As per HPI. Denies: Bruising, Change in color, Change in hair/nails, Lesions, Pruritus, Rash Neurological: Reports: As per HPI. Denies: Abnormal gait, Confusion, Headache, Numbness, Paresthesias, Seizure, Tingling, Tremors, Vertigo, Weakness Psychiatric: Reports: As per HPI. Denies: Anxiety, Auditory hallucinations, Depression, Homicidal thoughts, Suicidal thoughts, Visual hallucinations Hematological/Lymphatic: Reports: As per HPI. Denies: Anemia, Blood Clots, Easy bleeding, Easy bruising, Swollen glands Past Medical History - SOCIAL HISTORY Smoking Status: Never smoker Alcohol Use: None Drug Use: None - RESPIRATORY Hx Respiratory Disorders: No - CARDIOVASCULAR Hx Cardio Disorders: No - NEURO Hx Neuro Disorders: No - GI Hx GI Disorders: No - Hx Genitourinary Disorders: No - ENDOCRINE Hx Endocrine Disorders: No - MUSCULOSKELETAL Hx Musculoskeletal Disorders: No - PSYCH Hx Psych Problems: No - HEMATOLOGY/ONCOLOGY Hx Hematology/Oncology Disorders: No Family Medical History Any Significant Family History?: No Hx Cancer: Mother Physical Exam - General General Appearance: Alert, Oriented x3, Cooperative, No acute distress - Head Head exam: Normal inspection - Eye Eye exam: Normal appearance, PERRL Pupils: Normal accommodation - ENT ENT exam: Normal exam, Mucous membranes moist, Normal external ear exam, Normal orophraynx, TM's normal bilaterally Ear exam: Normal external inspection. negative: External canal tenderness Nasal Exam: Normal inspection. negative: Discharge, Sinus tenderness Mouth exam: Normal external inspection, Tongue normal Teeth exam: Normal inspection. negative: Dental caries Throat exam: Normal inspection. negative: Tonsillar erythema, Tonsillar exudate - Neck Neck exam: Normal inspection, Full ROM. negative: Tenderness - Respiratory Respiratory exam: Normal lung sounds bilaterally. negative: Respiratory distress - Cardiovascular Cardiovascular Exam: Regular rate, Normal rhythm, Normal heart sounds - GI/Abdominal GI/Abdominal exam: Soft, Normal bowel sounds. negative: Tenderness - Rectal Rectal exam: Deferred - exam: Deferred - Extremities Extremities exam: Normal inspection, Full ROM, Normal capillary refill, Pedal edema. negative: Tenderness - Back Back exam: Reports: Normal inspection, Full ROM. Denies: Muscle spasm, Rash noted, Tenderness - Neurological Neurological exam: Alert, Normal gait, Oriented X3, Reflexes normal - Psychiatric Psychiatric exam: Normal affect, Normal mood - Skin Skin exam: Dry, Intact, Normal color, Warm Course Vital Signs 09/21/18 14:00 Pulse Rate 96 H Respiratory 16 Rate Blood Pressure 132/72 Pulse Ox 98 Medical Decision Making - Lab Data Result diagrams: 09/21/18 14:55 09/21/18 14:55 Lab Results 09/21/18 Range/Units 14:20 Urine Color Yellow Urine Appearance Clear Urine pH 6.0 (5.0-8.0) Ur Specific [place] 1.025 (1.002-1.030) Urine Protein Negative (NEGATIVE) Urine Glucose (UA) Negative (NEGATIVE) Urine Ketones Negative (NEGATIVE) Urine Blood Negative (NEGATIVE) Urine Nitrite Negative (NEGATIVE) Urine Bilirubin Negative (NEGATIVE) Urine Urobilinogen 0.2 (0.20 - 1.00) E.U./dL Ur Leukocyte Esterase Negative (NEGATIVE) Urine HCG, Qual Negative (NEGATIVE) Disposition Clinical Impression: Lymphedema Disposition: Home, Self-Care Condition: (1) Good Instructions: Lymphedema (ED) Additional Instructions: take dyazide one a day follow up with your family Dr in one week avoid salty foods Prescriptions: Triamterene/Hydrochlorothiazid [Dyazide 37.5-25 Capsule] 1 each PO DAILY #14 capsule Forms: Patient Portal Access Time of Disposition: 15:04 Quality - Quality Measures Quality Measures: N/A - Blood Pressure Screening Does Patient Have Any of the Following: No Blood Pressure Classification: Pre-Hypertensive BP Reading Systolic Measurement: 132 Diastolic Measurement: 72 Screening for High Blood Pressure: < Pre-Hypertensive BP, F/U Documented > [G8950] Pre-Hypertensive Follow-up Interventions: Referral to alternative/primary care provider.
[2018-09-21 15:04] LABS: ABSOLUTE NEUTROPHIL COUNT 5.38; BASO % 0.1 % (0-6); EOS % 3.1 % (0-6); GRAN % 67.4 % (47-80); HEMATOCRIT 42.4 % (35.0-47.0); HEMOGLOBIN 13.8 gm/dl (11.6-16.0); LYMPH % 23.6 % (16-45); MEAN CELL VOLUME 82.5 fl (81-97); MEAN CORPUSCULAR HEMOGLOBIN 26.8 pg (27-33); MEAN CORPUSCULAR HGB CONC 32.5 g/dl (32-36); MEAN PLATELET VOLUME 8.9 fl (7.4-10.4); MONO % 5.8 % (0-9); PLATELET COUNT 290 K/uL (130-400); RED BLOOD COUNT 5.14 M/uL (3.80-5.40); RED CELL DISTRIBUTION WIDTH 13.8 % (11.5-14.5)
[2018-09-21 15:18] LABS: BLOOD UREA NITROGEN 7 mg/dL (6-20); CREATININE 0.6 mg/dL (0.5-0.9); EST GLOMERULAR FILTRATION RATE > 60 mL/min
[2018-09-21 15:21] LABS: GLUCOSE,RANDOM 101 mg/dL (74-109)
== END 2018-09-21 15:31 | disposition home or self-care (01) ==
LOC: ER 13:08
DX: S91.332A Puncture wound without foreign body, left foot, initial encounter (principal); I89.0 Lymphedema, not elsewhere classified; W26.8XXA Contact with other sharp object(s), not elsewhere classified, initial encounter; Y92.009 Unspecified place in unspecified non-institutional (private) residence as the place of occurrence of the external cause
CPT/HCPCS: 80048; 81003; 81025; 84443; 85025; 90715; 96372; 99282; 99283

== ENCOUNTER 2018-09-21 17:17 | Emergency (ER) | payer MEDICARE, MEDICAID ==
--- NOTE | 2018-09-21 18:49 | Emergency Department Record ---
History of Present Illness - General Chief Complaint: Wound, puncture Stated Complaint: STEPPED ON SOMETHING Time Seen by Provider: 09/21/18 18:36 Source: Patient Mode of Arrival: Ambulatory - History of Present Illness Initial Commments: The patient stepped on a metal tool while barefoot around 1700 today. She states she bled a little, but does not think there is a foreign body in the cut as the metal piece did not break. She is not UTD on her tetanus. Onset/Timin -: Hour(s) Place: Home Context: Accidental - Natasha Coma Scale Eye Response: (4) Open spontaneously Motor Response: (6) Obeys commands Verbal Response: (5) Oriented Natasha Total: 15 - Related Data Patient Tetanus UTD (within 5 yrs): No Previous Rx's Medication Instructions Recorded Triamterene/Hydrochlorothiazid 1 each PO DAILY #14 capsule 09/21/18 [Dyazide 37.5-25 Capsule] Allergies Allergy/AdvReac Type Severity Reaction Status Date / Time Penicillins Allergy Severe HIVES Verified 09/21/18 18:08 Travel Screening - Travel/Exposure Within Last 30 Days Have you traveled within the last 30 days?: No - Travel/Exposure Within Last Year Have you traveled outside the [place] in the last year?: No - Additonal Travel Details Have you been exposed to anyone with a communicable illness?: No - Travel Symptoms Symptom Screening: None Review of Systems Reviewed: No additional complaints except as noted below Constitutional: Reports: As per HPI. Denies: Chills, Fever, Malaise, Night sweats, Weakness, Weight change Eyes: Reports: As per HPI. Denies: Eye discharge, Eye pain, Photophobia, Vision change ENT: Reports: As per HPI. Denies: Congestion, Dental pain, Ear pain, Epistaxis, Hearing loss, Throat pain Respiratory: Reports: As per HPI. Denies: Cough, Dyspnea, Hemoptysis, Stridor, Wheezes Cardiovascular: Reports: As per HPI. Denies: Arrhythmia, Chest pain, Dyspnea on exertion, Edema, Murmurs, Orthopnea, Palpitations, Paroxysmal nocturnal dyspnea, Rheumatic Fever, Syncope Endocrine: Reports: As per HPI. Denies: Fatigue, Heat or cold intolerance, Polydipsia, Polyuria Gastrointestinal: Reports: As per HPI. Denies: Abdominal pain, Constipation, Diarrhea, Hematemesis, Hematochezia, Melena, Nausea, Vomiting Genitourinary: Reports: As per HPI. Denies: Abnormal menses, Discharge, Dyspareunia, Dysuria, Frequency, Hematuria, Incontinence, Retention, Urgency Musculoskeletal: Reports: As per HPI. Denies: Arthralgia, Back pain, Gout, Joint swelling, Myalgia, Neck pain Skin: Reports: As per HPI. Denies: Bruising, Change in color, Change in hair/nails, Lesions, Pruritus, Rash Neurological: Reports: As per HPI. Denies: Abnormal gait, Confusion, Headache, Numbness, Paresthesias, Seizure, Tingling, Tremors, Vertigo, Weakness Psychiatric: Reports: As per HPI. Denies: Anxiety, Auditory hallucinations, Depression, Homicidal thoughts, Suicidal thoughts, Visual hallucinations Hematological/Lymphatic: Reports: As per HPI. Denies: Anemia, Blood Clots, Easy bleeding, Easy bruising, Swollen glands Past Medical History - SOCIAL HISTORY Smoking Status: Never smoker Alcohol Use: None Drug Use: None - RESPIRATORY Hx Respiratory Disorders: No - CARDIOVASCULAR Hx Cardio Disorders: No - NEURO Hx Neuro Disorders: No - GI Hx GI Disorders: No - Hx Genitourinary Disorders: No - ENDOCRINE Hx Endocrine Disorders: No - MUSCULOSKELETAL Hx Musculoskeletal Disorders: No - PSYCH Hx Psych Problems: No - HEMATOLOGY/ONCOLOGY Hx Hematology/Oncology Disorders: No Family Medical History Any Significant Family History?: Yes Hx Cancer: Mother Physical Exam - General General Appearance: Alert, Oriented x3, Cooperative, No acute distress (soaking her left foot in warm soapy water) - Head Head exam: Normal inspection - Eye Eye exam: Normal appearance, PERRL, EOMI. negative: Conjunctival injection, Nystagmus Pupils: Normal accommodation - ENT ENT exam: Normal exam, Mucous membranes moist, Normal external ear exam, Normal orophraynx Ear exam: Normal external inspection. negative: External canal tenderness Nasal Exam: Normal inspection. negative: Discharge, Sinus tenderness Mouth exam: Normal external inspection, Tongue normal Teeth exam: Normal inspection. negative: Dental caries Throat exam: Normal inspection. negative: Tonsillar erythema, Tonsillar exudate - Neck Neck exam: Normal inspection, Full ROM. negative: Lymphadenopathy, Meningismus, Tenderness - Respiratory Respiratory exam: Normal lung sounds bilaterally. negative: Respiratory distress - Cardiovascular Cardiovascular Exam: Normal rhythm, Tachycardia - GI/Abdominal GI/Abdominal exam: Soft. negative: Tenderness - Rectal Rectal exam: Deferred - exam: Deferred - Extremities Extremities exam: Normal inspection, Full ROM, Normal capillary refill. negative: Tenderness Image of Feet: 1 - 1mm puncture wound to arch area of left foot. Bleeding controlled. Irrigated with syringe, no FB seen, patient tolerated well - Back Back exam: Reports: Normal inspection, Full ROM. Denies: Muscle spasm, Rash noted, Tenderness - Neurological Neurological exam: Alert, CN II-XII intact, Normal gait, Oriented X3, Reflexes normal - Psychiatric Psychiatric exam: Normal affect, Normal mood - Skin Skin exam: Dry, Intact, Normal color, Warm Course Vital Signs 09/21/18 18:10 Temperature 98.2 F Pulse Rate [ 110 H Pulse Ox Probe] Respiratory 18 Rate Blood Pressure 137/111 [Left Arm] Pulse Ox 97 - Reevaluation(s) Reevaluation #1: 09/21/18 18:53 Patient and family informed that there could be a retained FB which would p otentially require further procedures to remove, infection could be a complication as well. Medical Decision Making - Management Options MDM Management: No Additional Work-up Planned Disposition Disposition: Discharge Clinical Impression: Puncture wound of foot Qualifiers: Encounter type: initial encounter Laterality: left Qualified Code(s): S91.332A - Puncture wound without foreign body, left foot, initial encounter Disposition: Home, Self-Care Condition: (1) Good Instructions: Wound Healing and Your Diet (ED) Additional Instructions: Keep your foot covered for protection. Keep it clean and dry. Follow up with PCP for recheck of wound. Possibility of retained FB, infection, or other complications which may need further care. Tylenol alternated with ibuprofen as needed as directed for pain. Quality - Quality Measures Quality Measures: N/A, (14-50yr) - : US Determination Quality Measure: Measure #254: US Determination of Location US Determination of Location: < Trans-Abdominal or Trans-Vaginal US Performed > [G8806] Reason for No US: Other (m) - : Rhogam Quality Measure: Measure #255: Rhogam for Rh-Negative Women ICD10 Codes Entered: Yes Rhogam for Rh-Negative Women at Risk: Rh-immunoglobulin NOT Ordered w/Reason [G8810] Reason for not prescribing Rhogam: Other - Blood Pressure Screening Does Patient Have Any of the Following: No Blood Pressure Classification: Hypertensive Reading Systolic Measurement: 137 Diastolic Measurement: 111 Screening for High Blood Pressure: < Pre-Hypertensive BP, F/U Documented > [G8950] Pre-Hypertensive Follow-up Interventions: Follow-up with rescreen every year.
[2018-09-21] MEDS ORDERED: Diph,Pert(Acell),Tet Vac 0.5 ML SYR IM ONE (18:56)
== END 2018-09-21 19:12 | disposition home or self-care (01) ==
LOC: ER 17:17
DX: S91.332A Puncture wound without foreign body, left foot, initial encounter (principal); W26.8XXA Contact with other sharp object(s), not elsewhere classified, initial encounter; Y92.009 Unspecified place in unspecified non-institutional (private) residence as the place of occurrence of the external cause
CPT/HCPCS: 90715